=== PATIENT | female | born 1930 | race Caucasian/White ===

== ENCOUNTER 2016-10-29 11:12 | Outpatient (CLI) | payer OTHER ==
[~2016-10-29 11:12] MED LIST: ASPI81TA2 PO; ATOR40TA68 PO; CLOP75TA32 PO; FAMO20TA8 PO; ISOS30TA6 PO; LISI40TA4 PO; OMEP20CA10 PO; RANO500T2 PO
[2016-10-29] MEDS ORDERED: BARIUM SULFATE 135 ML SUSP.RECON (E-Z-HD) PO ONE (11:35)
== END 2016-10-29 19:37 | disposition home or self-care (01) ==
LOC: SRD 11:12
PROVIDERS: ATTEND Internal Medicine
DX: K21.9 Gastro-esophageal reflux disease without esophagitis (principal); K44.9 Diaphragmatic hernia without obstruction or gangrene; K22.4 Dyskinesia of esophagus
CPT/HCPCS: 74220-TC

== ENCOUNTER 2016-11-21 13:32 | Outpatient (CLI) | payer OTHER ==
[2016-11-21 15:00] LABS: BASOPHILS % (AUTO) 0.3 % (0.0-2.0); EOSINOPHILS # (AUTO) 0.1 K/uL (0.0-0.4); EOSINOPHILS % (AUTO) 1.4 % (0.0-4.0); HEMATOCRIT 37.9 % (36-48); HEMOGLOBIN 12.3 g/dL (12.0-16.0); LYMPHOCYTES # (AUTO) 1.2 K/uL (1.0-5.5); LYMPHOCYTES % (AUTO) 19.5 % (20.5-51.5); MEAN CORPUSCULAR HEMOGLOBIN 28 pg (27-31); MEAN CORPUSCULAR HGB CONC 33 % (32-36); MEAN CORPUSCULAR VOLUME 85 fL (79.0-98.0); MONOCYTES # (AUTO) 0.3 K/uL (0.0-1.0); MONOCYTES % (AUTO) 5.3 % (1.7-9.3); NEUTROPHILS # (AUTO) 4.6 K/uL (1.8-7.7); NEUTROPHILS % (AUTO) 73.5 % (40.0-70.0); PLATELET COUNT (AUTO) 207 K/uL (130-430); RED BLOOD CELL COUNT(AUTO) 4.46 MIL/uL (4.2-6.2); RED CELL DISTRIBUTION WIDTH 15.6 % (9.0-15.0); WHITE BLOOD COUNT (AUTO) 6.2 K/uL (4.8-10.8)
[2016-11-21 15:20] LABS: BILIRUBIN,URINE NEGATIVE (NEGATIVE); BLOOD, URINE NEGATIVE (NEGATIVE); CLARITY/URINE HAZY (CLEAR); COLOR,URINE YELLOW (YELLOW); GLUCOSE,URINE NEGATIVE (NEGATIVE); KETONES,URINE NEGATIVE (NEGATIVE); LEUKOCYTE ESTERASE ,URINE 2+ (NEGATIVE); NITRITE, URINE NEGATIVE (NEGATIVE); PROTEIN URINE NEGATIVE (NEGATIVE); UROBILINOGEN,URINE 0.2 (0.2-1.0)
[2016-11-21 15:28] LABS: ANION GAP 4 (5-15); CALCIUM 9.4 mg/dL (8.4-11.0); CHLORIDE 102 mmol/L (98-107); CREATININE 1.36 mg/dL (0.55-1.30); GLUCOSE 125 mg/dL (70-99); POTASSIUM 3.7 mmol/L (3.5-5.1); SODIUM SERUM 136 mmol/L (136-145); UREA NITROGEN, BLOOD 19 mg/dL (8-21)
[2016-11-21 16:07] LABS: BACTERIA,URINE FEW /HPF (None Seen); RBC,URINE 0-3 /HPF (0-3)
[2016-11-21 16:08] LABS: MUCUS,URINE None Seen /LPF (None Seen); URINE AMORPHOUS URATE 2+ /HPF (None Seen)
== END 2016-11-21 18:30 | disposition home or self-care (01) ==
LOC: SLB 13:32 → EDSTATUS 11-27 12:00
PROVIDERS: ATTEND Orthopaedic Surgery
DX: Z01.818 Encounter for other preprocedural examination (principal); R05 Cough; R06.02 Shortness of breath; K44.9 Diaphragmatic hernia without obstruction or gangrene; I51.7 Cardiomegaly; M47.899 Other spondylosis, site unspecified; M81.0 Age-related osteoporosis without current pathological fracture
CPT/HCPCS: 36415; 71020-TC; 80048; 81000-TC; 85025; 86886; 86900; 86901; 86920; 87081; 87086

== ENCOUNTER 2016-12-07 12:40 | Emergency (ER) | payer OTHER ==
[~2016-12-07] VITALS: Ht 165.1 cm; Wt 89.8 kg
[2016-12-07 12:40] VITALS: BP_SYST 117
--- NOTE | 2016-12-07 12:40 | NUR ---
Placed in room 7 . To gown for exam. bED lOW Side rails up. Report given to TREE LOPEZ
--- NOTE | 2016-12-07 12:50 | NUR ---
Pt states she has a cough for the past 10 days and was on a z pack 5 days ago, cough is not getting better. No noted SOB, answers questions appropriately. Pt states there is burning on urination and frequency. No other injuries/complaints per pt or noted
--- NOTE | 2016-12-07 13:14 | NUR ---
ER at bedside examining patient.
[2016-12-07 13:25] LABS: BILIRUBIN,URINE NEGATIVE (NEGATIVE); BLOOD, URINE NEGATIVE (NEGATIVE); CLARITY/URINE CLEAR (CLEAR); COLOR,URINE YELLOW (YELLOW); GLUCOSE,URINE NEGATIVE (NEGATIVE); KETONES,URINE NEGATIVE (NEGATIVE); LEUKOCYTE ESTERASE ,URINE NEGATIVE (NEGATIVE); NITRITE, URINE NEGATIVE (NEGATIVE); PH,URINE 6.5 (5.0-8.0); PROTEIN URINE NEGATIVE (NEGATIVE); UROBILINOGEN,URINE 0.2 (0.2-1.0)
[2016-12-07 13:33] LABS: BASOPHILS % (AUTO) 0.6 % (0.0-2.0); EOSINOPHILS # (AUTO) 0.1 K/uL (0.0-0.4); EOSINOPHILS % (AUTO) 1.5 % (0.0-4.0); HEMOGLOBIN 11.8 g/dL (12.0-16.0); LYMPHOCYTES # (AUTO) 1.1 K/uL (1.0-5.5); MEAN CORPUSCULAR HEMOGLOBIN 28 pg (27-31); MEAN CORPUSCULAR HGB CONC 33 % (32-36); MEAN CORPUSCULAR VOLUME 84 fL (79.0-98.0); MONOCYTES # (AUTO) 0.4 K/uL (0.0-1.0); MONOCYTES % (AUTO) 7.4 % (1.7-9.3); NEUTROPHILS # (AUTO) 3.7 K/uL (1.8-7.7); NEUTROPHILS % (AUTO) 69.5 % (40.0-70.0); PLATELET COUNT (AUTO) 199 K/uL (130-430); RED BLOOD CELL COUNT(AUTO) 4.26 MIL/uL (4.2-6.2); RED CELL DISTRIBUTION WIDTH 15.1 % (9.0-15.0); WHITE BLOOD COUNT (AUTO) 5.3 K/uL (4.8-10.8)
[2016-12-07 13:43] LABS: ANION GAP 6 (5-15); CALCIUM 8.4 mg/dL (8.4-11.0); CHLORIDE 101 mmol/L (98-107); CREATININE 1.62 mg/dL (0.55-1.30); GLUCOSE 138 mg/dL (70-99); POTASSIUM 4.1 mmol/L (3.5-5.1); SODIUM SERUM 133 mmol/L (136-145); UREA NITROGEN, BLOOD 22 mg/dL (8-21)
[2016-12-07 13:48] LABS: ALANINE AMINOTRANSFERASE 17 U/L (12-78); ALBUMIN 3.1 g/dL (3.4-4.8); ASPARTATE AMINOTRANSFERASE 16 U/L (10-37); TOTAL BILIRUBIN 0.5 mg/dL (0.0-1.0); TOTAL PROTEIN, SERUM 6.5 g/dL (6.4-8.3)
[2016-12-07] MEDS ORDERED: PROMETHAZINE 6.25 MG/ CODEINE 10 MG/ 5 ML PO ONE (14:00)
--- NOTE | 2016-12-07 14:12 | NUR ---
Pt is resting comfortably in bed with no nted SOB, has a cough and waiting for medication to help.
[2016-12-07 15:05] VITALS: BP_SYST 123
--- NOTE | 2016-12-07 15:05 | NUR ---
Patient given written and verbal discharge instructions and verbalizes understanding. ER MD discussed with patient the results and treatment provided. Patient in stable condition. ID arm band removed. Rx of promethazine given. Patient educated on pain management and to follow up with PMD. Pain Scale 0. Opportunity for questions provided and answered.
== END 2016-12-07 15:05 | disposition home or self-care (01) ==
LOC: SED 12:42
DX: J06.9 Acute upper respiratory infection, unspecified (principal); I10 Essential (primary) hypertension; I25.10 Atherosclerotic heart disease of native coronary artery without angina pectoris; Z88.6 Allergy status to analgesic agent; Z86.73 Personal history of transient ischemic attack (TIA), and cerebral infarction without residual deficits
CPT/HCPCS: 36415; 71010; 80053; 81003; 83605; 84484; 85025; 93005; 99285

== ENCOUNTER 2016-12-10 11:18 | Inpatient (IN) | payer OTHER ==
[~2016-12-10] VITALS: Ht 165.1 cm; Wt 89.8 kg
[2016-12-10 19:15] VITALS: BP_SYST 153
[2016-12-10 19:50] VITALS: BP_SYST 144
[2016-12-10] MEDS ORDERED: CLOP75TA2 PO (20:04)
[2016-12-10] MEDS ORDERED: HYDR25TA4 PO (20:06)
[2016-12-10] MEDS ORDERED: MULT-1164 PO (20:06)
[2016-12-10] MEDS ORDERED: CYAN100070 PO (20:06)
[2016-12-10] MEDS ORDERED: IPRATROPIUM/ALBUTEROL SULFATE 3 ML AMPUL.NEB INH PRN (20:15)
[2016-12-10] MEDS ORDERED: DEXTROSE 50% JECT 50 ML DISP.SYRIN IVP PRN ×2 (20:30)
[2016-12-10] MEDS ORDERED: LEVOFLOXACIN 500 MG/D5W 100 ML IV SCH (20:45)
[2016-12-10 21:20] LABS: BASOPHILS % (AUTO) 0.2 % (0.0-2.0); EOSINOPHILS # (AUTO) 0.1 K/uL (0.0-0.4); EOSINOPHILS % (AUTO) 1.2 % (0.0-4.0); HEMOGLOBIN 11.6 g/dL (12.0-16.0); LYMPHOCYTES # (AUTO) 1.3 K/uL (1.0-5.5); LYMPHOCYTES % (AUTO) 25.9 % (20.5-51.5); MEAN CORPUSCULAR HEMOGLOBIN 28 pg (27-31); MEAN CORPUSCULAR HGB CONC 33 % (32-36); MEAN CORPUSCULAR VOLUME 84 fL (79.0-98.0); MONOCYTES # (AUTO) 0.3 K/uL (0.0-1.0); MONOCYTES % (AUTO) 6.6 % (1.7-9.3); NEUTROPHILS # (AUTO) 3.1 K/uL (1.8-7.7); NEUTROPHILS % (AUTO) 66.1 % (40.0-70.0); PLATELET COUNT (AUTO) 233 K/uL (130-430); RED BLOOD CELL COUNT(AUTO) 4.18 MIL/uL (4.2-6.2); RED CELL DISTRIBUTION WIDTH 15.1 % (9.0-15.0); WHITE BLOOD COUNT (AUTO) 4.8 K/uL (4.8-10.8)
[2016-12-10 21:22] LABS: ANION GAP 5 (5-15); CHLORIDE 96 mmol/L (98-107); CREATININE 1.21 mg/dL (0.55-1.30); GLUCOSE 104 mg/dL (70-99); POTASSIUM 4.1 mmol/L (3.5-5.1); SODIUM SERUM 131 mmol/L (136-145); UREA NITROGEN, BLOOD 13 mg/dL (8-21)
[2016-12-10 21:26] VITALS: BP_SYST 153
[2016-12-10 21:34] LABS: ALANINE AMINOTRANSFERASE 17 U/L (12-78); ALBUMIN 3.2 g/dL (3.4-4.8); ASPARTATE AMINOTRANSFERASE 18 U/L (10-37); TOTAL BILIRUBIN 0.4 mg/dL (0.0-1.0); TOTAL PROTEIN, SERUM 6.4 g/dL (6.4-8.3)
[2016-12-10] MEDS ORDERED: LEVOFLOXACIN 500 MG/D5W 100 ML IV ONE (21:34)
[2016-12-10] MEDS ORDERED: RANOLAZINE 500 MG TAB.SR.12H PO ONE (22:00)
[2016-12-10] MEDS: ATORVASTATIN 20 MG TABLET PO SCH (22:33)
[2016-12-10] MEDS: LR 1,000 ML IV SCH (22:40)
[2016-12-10] MEDS: methylPREDNISolone SOD SUCC 40 MG/ML VIAL IVP SCH (22:40)
[2016-12-10] MEDS ORDERED: ISOSORBIDE MONONITRATE 30 MG TAB.ER.24H PO ONE (22:45)
[2016-12-10] MEDS ORDERED: LISINOPRIL 20 MG TABLET PO ONE (23:00)
[2016-12-10] MEDS: ZOLPIDEM TARTRATE 5 MG TABLET PO PRN ×2 (23:13→23:14)
[2016-12-10] MEDS: PROMETHAZINE 6.25 MG/ CODEINE 10 MG/ 5 ML PO PRN (23:35)
[2016-12-11] VITALS (7 sets, daily range): BP systolic 120–163
[2016-12-11] MEDS: INSULIN REGULAR, HUMAN 100 UNITS/ML, 10 ML VIAL (novoLIN R) SUBCUT PRN ×3 (05:56→17:54)
[2016-12-11] MEDS: IPRATROPIUM/ALBUTEROL SULFATE 3 ML AMPUL.NEB INH SCH ×3 (06:00→20:27)
[2016-12-11] MEDS: methylPREDNISolone SOD SUCC 40 MG/ML VIAL IVP SCH ×2 (08:08→22:31)
[2016-12-11] MEDS ORDERED: LISINOPRIL 20 MG TABLET PO SCH (09:00)
[2016-12-11] MEDS ORDERED: ISOSORBIDE MONONITRATE 30 MG TAB.ER.24H PO SCH (09:00)
[2016-12-11] MEDS: RANOLAZINE 500 MG TAB.SR.12H PO SCH ×2 (09:08→20:27)
[2016-12-11] MEDS: ISOSORBIDE MONONITRATE 30 MG TAB.ER.24H PO SCH ×2 (09:08→20:28)
[2016-12-11] MEDS: ASPIRIN 81 MG TAB.CHEW PO SCH (09:09)
[2016-12-11] MEDS: MULTIVITS,CA,MINERALS/IRON/FA 1 TABLET PO SCH (09:09)
[2016-12-11] MEDS: CYANOCOBALAMIN 1000 mCg TABLET PO SCH (09:09)
[2016-12-11] MEDS: OMEPRAZOLE 20 MG CAPSULE.DR (PriLOSEC) PO SCH ×2 (09:09→20:27)
[2016-12-11] MEDS: CLOPIDOGREL BISULFATE 75 MG TABLET PO SCH (09:09)
[2016-12-11] MEDS: HYDROCHLOROTHIAZIDE 25 MG TABLET (HCTZ) PO SCH (09:09)
[2016-12-11] MEDS: LR 1,000 ML IV SCH (10:48)
[2016-12-11] MEDS: PROMETHAZINE 6.25 MG/ CODEINE 10 MG/ 5 ML PO PRN ×2 (13:29→20:26)
[2016-12-11] MEDS: METOCLOPRAMIDE HCL 10 MG TABLET PO SCH ×2 (17:52→20:27)
[2016-12-11] MEDS ORDERED: ACETAMINOPHEN 650 MG/20.3 ML UDC GT PRN (20:15)
[2016-12-11] MEDS: ATORVASTATIN 20 MG TABLET PO SCH (20:27)
[2016-12-11] MEDS: LISINOPRIL 20 MG TABLET PO SCH (20:28)
[2016-12-11] MEDS ORDERED: ACETAMINOPHEN 650 MG/20.3 ML UDC PO PRN (20:30)
[2016-12-11] MEDS: LEVOFLOXACIN 250 MG/D5W 50 ML IV SCH (22:31)
[2016-12-11] MEDS: ZOLPIDEM TARTRATE 5 MG TABLET PO PRN (23:04)
[2016-12-12] MEDS: IPRATROPIUM/ALBUTEROL SULFATE 3 ML AMPUL.NEB INH SCH ×4 (01:04→19:56)
[2016-12-12 04:15] VITALS: BP_SYST 135
[2016-12-12] MEDS: INSULIN REGULAR, HUMAN 100 UNITS/ML, 10 ML VIAL (novoLIN R) SUBCUT PRN ×4 (05:58→22:35)
[2016-12-12] MEDS: METOCLOPRAMIDE HCL 10 MG TABLET PO SCH ×4 (05:58→22:24)
[2016-12-12 07:50] LABS: BILIRUBIN,URINE NEGATIVE (NEGATIVE); BLOOD, URINE NEGATIVE (NEGATIVE); CLARITY/URINE CLEAR (CLEAR); COLOR,URINE YELLOW (YELLOW); GLUCOSE,URINE NEGATIVE (NEGATIVE); KETONES,URINE NEGATIVE (NEGATIVE); LEUKOCYTE ESTERASE ,URINE NEGATIVE (NEGATIVE); NITRITE, URINE NEGATIVE (NEGATIVE); PROTEIN URINE NEGATIVE (NEGATIVE); UROBILINOGEN,URINE 0.2 (0.2-1.0)
[2016-12-12 08:59] VITALS: BP_SYST 131
[2016-12-12] MEDS: CYANOCOBALAMIN 1000 mCg TABLET PO SCH (09:03)
[2016-12-12] MEDS: CLOPIDOGREL BISULFATE 75 MG TABLET PO SCH (09:03)
[2016-12-12] MEDS: RANOLAZINE 500 MG TAB.SR.12H PO SCH ×2 (09:03→22:24)
[2016-12-12] MEDS: MULTIVITS,CA,MINERALS/IRON/FA 1 TABLET PO SCH (09:03)
[2016-12-12] MEDS: ISOSORBIDE MONONITRATE 30 MG TAB.ER.24H PO SCH ×2 (09:03→22:23)
[2016-12-12] MEDS: OMEPRAZOLE 20 MG CAPSULE.DR (PriLOSEC) PO SCH ×2 (09:03→22:25)
[2016-12-12] MEDS: ASPIRIN 81 MG TAB.CHEW PO SCH (09:03)
[2016-12-12] MEDS: HYDROCHLOROTHIAZIDE 25 MG TABLET (HCTZ) PO SCH (09:04)
[2016-12-12] MEDS: methylPREDNISolone SOD SUCC 40 MG/ML VIAL IVP SCH ×2 (09:04→22:23)
[2016-12-12] MEDS: PROMETHAZINE 6.25 MG/ CODEINE 10 MG/ 5 ML PO PRN ×2 (11:22→22:51)
[2016-12-12 11:27] VITALS: BP_SYST 167
[2016-12-12 11:55] LABS: ANION GAP 6 (5-15); CALCIUM 9.5 mg/dL (8.4-11.0); CHLORIDE 99 mmol/L (98-107); CREATININE 1.45 mg/dL (0.55-1.30); GLUCOSE 149 mg/dL (70-99); POTASSIUM 4.2 mmol/L (3.5-5.1); SODIUM SERUM 133 mmol/L (136-145); UREA NITROGEN, BLOOD 23 mg/dL (8-21)
[2016-12-12 11:56] LABS: IRON (SERUM) 55 mcg/dL (37-145); TOTAL IRON BIND. CAPACITY 333 ug/dL (250-450)
[2016-12-12 12:28] VITALS: BP_SYST 167
[2016-12-12 16:00] VITALS: BP_SYST 168
[2016-12-12 20:00] VITALS: BP_SYST 157
[2016-12-12] MEDS ORDERED: LISINOPRIL 20 MG TABLET PO SCH (21:00)
[2016-12-12] MEDS: LEVOFLOXACIN 250 MG/D5W 50 ML IV SCH (22:23)
[2016-12-12] MEDS: ATORVASTATIN 20 MG TABLET PO SCH (22:24)
[2016-12-12] MEDS: LISINOPRIL 20 MG TABLET PO SCH (22:25)
[2016-12-12] MEDS: ZOLPIDEM TARTRATE 5 MG TABLET PO PRN (22:51)
[2016-12-13] VITALS (8 sets, daily range): BP systolic 143–175
[2016-12-13] MEDS: IPRATROPIUM/ALBUTEROL SULFATE 3 ML AMPUL.NEB INH SCH ×4 (01:00→20:19)
[2016-12-13] MEDS: METOCLOPRAMIDE HCL 10 MG TABLET PO SCH ×3 (06:22→17:19)
[2016-12-13] MEDS: MULTIVITS,CA,MINERALS/IRON/FA 1 TABLET PO SCH (08:50)
[2016-12-13] MEDS: OMEPRAZOLE 20 MG CAPSULE.DR (PriLOSEC) PO SCH (08:50)
[2016-12-13] MEDS: methylPREDNISolone SOD SUCC 40 MG/ML VIAL IVP SCH (08:50)
[2016-12-13] MEDS: RANOLAZINE 500 MG TAB.SR.12H PO SCH (08:50)
[2016-12-13] MEDS: CYANOCOBALAMIN 1000 mCg TABLET PO SCH (08:50)
[2016-12-13] MEDS: CLOPIDOGREL BISULFATE 75 MG TABLET PO SCH (08:50)
[2016-12-13] MEDS: HYDROCHLOROTHIAZIDE 25 MG TABLET (HCTZ) PO SCH (08:51)
[2016-12-13] MEDS: ASPIRIN 81 MG TAB.CHEW PO SCH (08:51)
[2016-12-13] MEDS: ISOSORBIDE MONONITRATE 30 MG TAB.ER.24H PO SCH (08:51)
[2016-12-13] MEDS: PROMETHAZINE 6.25 MG/ CODEINE 10 MG/ 5 ML PO PRN (11:27)
[2016-12-13] MEDS ORDERED: cloNIDine HCL 0.1 MG TABLET PO PRN (11:45)
[2016-12-13] MEDS: INSULIN REGULAR, HUMAN 100 UNITS/ML, 10 ML VIAL (novoLIN R) SUBCUT PRN (17:24)
== END 2016-12-13 21:30 | disposition home or self-care (01) | DRG 189 ==
LOC: SMU 18:20
PROVIDERS: ADMIT Internal Medicine; ATTEND Internal Medicine
DX: J96.00 Acute respiratory failure, unspecified whether with hypoxia or hypercapnia (principal); J44.0 Chronic obstructive pulmonary disease with (acute) lower respiratory infection; E87.1 Hypo-osmolality and hyponatremia; E44.1 Mild protein-calorie malnutrition; J44.1 Chronic obstructive pulmonary disease with (acute) exacerbation; J20.9 Acute bronchitis, unspecified; I10 Essential (primary) hypertension; I25.10 Atherosclerotic heart disease of native coronary artery without angina pectoris; E11.9 Type 2 diabetes mellitus without complications; E78.5 Hyperlipidemia, unspecified; M17.0 Bilateral primary osteoarthritis of knee; D64.9 Anemia, unspecified; E66.9 Obesity, unspecified; G47.00 Insomnia, unspecified; G89.29 Other chronic pain; M40.209 Unspecified kyphosis, site unspecified; K21.9 Gastro-esophageal reflux disease without esophagitis; K44.9 Diaphragmatic hernia without obstruction or gangrene; Z86.73 Personal history of transient ischemic attack (TIA), and cerebral infarction without residual deficits; Z95.5 Presence of coronary angioplasty implant and graft; Z90.710 Acquired absence of both cervix and uterus; Z68.32 Body mass index [BMI] 32.0-32.9, adult; Z90.49 Acquired absence of other specified parts of digestive tract; Z88.6 Allergy status to analgesic agent
CPT/HCPCS: 36415; 71250-TC; 80048; 80053; 81003; 82962; 83540-TC; 83550-TC; 83880; 84484; 85025; 87086; 93005; 93306; 94640; 94760; 97110-GP; 97116-GP; 97530-GP; J1030; J1815; J1956; J7120; J8597

== ENCOUNTER 2017-01-08 14:08 | Inpatient (IN) | payer OTHER ==
[~2017-01-08] VITALS: Ht 165.1 cm; Wt 88.9 kg
[~2017-01-08 14:08] MED LIST changes: +CLOP75TA2 PO; -CLOP75TA32 PO; +CYAN100070 PO; -FAMO20TA8 PO; +HYDR25TA4 PO; +MULT-1164 PO
[2017-01-08 15:53] VITALS: BP_SYST 117
[2017-01-08] MEDS ORDERED: LISI-600 PO (16:43)
[2017-01-08] MEDS ORDERED: CIPR-211 PO (16:43)
[2017-01-08] MEDS ORDERED: METR500T PO (16:43)
[2017-01-08] MEDS ORDERED: ALBU2.5V7 INH (16:43)
[2017-01-08] MEDS ORDERED: LIP40 PO (16:44)
[2017-01-08] MEDS ORDERED: MONT10TA25 PO (16:53)
[2017-01-08 17:18] LABS: BASOPHILS % (AUTO) 0.2 % (0.0-2.0); EOSINOPHILS # (AUTO) 0.1 K/uL (0.0-0.4); EOSINOPHILS % (AUTO) 0.9 % (0.0-4.0); HEMATOCRIT 33.3 % (36-48); HEMOGLOBIN 10.8 g/dL (12.0-16.0); LYMPHOCYTES # (AUTO) 0.8 K/uL (1.0-5.5); LYMPHOCYTES % (AUTO) 13.3 % (20.5-51.5); MEAN CORPUSCULAR HEMOGLOBIN 28 pg (27-31); MEAN CORPUSCULAR HGB CONC 33 % (32-36); MEAN CORPUSCULAR VOLUME 85 fL (79.0-98.0); MONOCYTES # (AUTO) 0.5 K/uL (0.0-1.0); NEUTROPHILS # (AUTO) 4.3 K/uL (1.8-7.7); NEUTROPHILS % (AUTO) 77.6 % (40.0-70.0); PLATELET COUNT (AUTO) 212 K/uL (130-430); RED BLOOD CELL COUNT(AUTO) 3.94 MIL/uL (4.2-6.2); RED CELL DISTRIBUTION WIDTH 16.6 % (9.0-15.0); WHITE BLOOD COUNT (AUTO) 5.7 K/uL (4.8-10.8)
[2017-01-08 17:26] LABS: ANION GAP 7 (5-15); CALCIUM 8.6 mg/dL (8.4-11.0); CHLORIDE 98 mmol/L (98-107); CREATININE 1.24 mg/dL (0.55-1.30); GLUCOSE 108 mg/dL (70-99); POTASSIUM 4.2 mmol/L (3.5-5.1); SODIUM SERUM 133 mmol/L (136-145); UREA NITROGEN, BLOOD 18 mg/dL (8-21)
[2017-01-08 17:31] LABS: ALANINE AMINOTRANSFERASE 15 U/L (12-78); ALBUMIN 2.9 g/dL (3.4-4.8); ASPARTATE AMINOTRANSFERASE 13 U/L (10-37); TOTAL BILIRUBIN 0.5 mg/dL (0.0-1.0); TOTAL PROTEIN, SERUM 6.1 g/dL (6.4-8.3)
[2017-01-08] MEDS ORDERED: INSULIN REGULAR, HUMAN 100 UNITS/ML, 10 ML VIAL (novoLIN R) SUBCUT PRN (18:45)
[2017-01-08] MEDS ORDERED: DEXTROSE 50% JECT 50 ML DISP.SYRIN IVP PRN (18:45)
[2017-01-08] MEDS ORDERED: ACETAMINOPHEN 325 MG TABLET PO PRN (19:15)
[2017-01-08] MEDS ORDERED: metroNIDAZOLE 500 mg/NS 100 ML IV ONE (19:30)
[2017-01-08 20:00] VITALS: BP_SYST 119
[2017-01-08] MEDS: ISOSORBIDE MONONITRATE 30 MG TAB.ER.24H PO SCH (20:07)
[2017-01-08] MEDS: MONTELUKAST 10 MG TABLET PO SCH (20:07)
[2017-01-08] MEDS: ZOLPIDEM TARTRATE 5 MG TABLET PO SCH (20:07)
[2017-01-08] MEDS: LACTOBACILLUS RHAMNOSUS GG 1 CAP CAPSULE PO SCH (20:07)
[2017-01-08] MEDS: ATORVASTATIN 20 MG TABLET PO SCH (20:08)
[2017-01-08] MEDS: RANOLAZINE 500 MG TAB.SR.12H PO SCH (20:08)
[2017-01-08] MEDS: traMADol HCL HCL 50 MG TABLET (ULTRAM) PO PRN (20:08)
[2017-01-08] MEDS: PANTOPRAZOLE SODIUM 40 MG TAB PO SCH (20:08)
[2017-01-08] MEDS: LISINOPRIL 20 MG TABLET PO SCH (20:10)
[2017-01-08] MEDS ORDERED: metroNIDAZOLE 500 mg/NS 200 ML IV ONE (20:15)
[2017-01-08] MEDS ORDERED: LEVOFLOXACIN 250 MG/D5W 50 ML IV ONE (20:15)
[2017-01-08 20:34] VITALS: BP_SYST 115
[2017-01-08] MEDS ORDERED: ONDANSETRON HCL 4 MG/2 ML VIAL IVP PRN (20:45)
[2017-01-08] MEDS ORDERED: CIPROFLOXACIN LACT 200 MG/D5W 100 ML IV SCH (21:00)
[2017-01-08] MEDS ORDERED: OMEPRAZOLE 20 MG CAPSULE.DR (PriLOSEC) PO SCH (21:00)
[2017-01-08] MEDS: LEVOFLOXACIN 250 MG/D5W 50 ML IV SCH (21:56)
[2017-01-08 23:19] VITALS: BP_SYST 117
[2017-01-09 04:01] VITALS: BP_SYST 136
[2017-01-09] MEDS ORDERED: ONDANSETRON HCL 4 MG/2 ML VIAL IVP PRN (04:30)
[2017-01-09 04:37] LABS: BILIRUBIN,URINE NEGATIVE (NEGATIVE); BLOOD, URINE NEGATIVE (NEGATIVE); CLARITY/URINE CLEAR (CLEAR); COLOR,URINE YELLOW (YELLOW); GLUCOSE,URINE NEGATIVE (NEGATIVE); KETONES,URINE NEGATIVE (NEGATIVE); LEUKOCYTE ESTERASE ,URINE NEGATIVE (NEGATIVE); NITRITE, URINE NEGATIVE (NEGATIVE); PROTEIN URINE NEGATIVE (NEGATIVE); UROBILINOGEN,URINE 0.2 (0.2-1.0)
[2017-01-09] MEDS: metroNIDAZOLE 500 mg/NS 100 ML IV SCH ×3 (05:13→22:34)
[2017-01-09 07:01] LABS: ANION GAP 4 (5-15); CALCIUM 8.6 mg/dL (8.4-11.0); CHLORIDE 96 mmol/L (98-107); CREATININE 1.19 mg/dL (0.55-1.30); GLUCOSE 96 mg/dL (70-99); POTASSIUM 3.9 mmol/L (3.5-5.1); SODIUM SERUM 132 mmol/L (136-145); UREA NITROGEN, BLOOD 17 mg/dL (8-21)
[2017-01-09 07:05] LABS: BASOPHILS % (AUTO) 0.3 % (0.0-2.0); EOSINOPHILS # (AUTO) 0.1 K/uL (0.0-0.4); EOSINOPHILS % (AUTO) 2.3 % (0.0-4.0); HEMATOCRIT 33.2 % (36-48); LYMPHOCYTES % (AUTO) 21.9 % (20.5-51.5); MEAN CORPUSCULAR HEMOGLOBIN 28 pg (27-31); MEAN CORPUSCULAR HGB CONC 33 % (32-36); MEAN CORPUSCULAR VOLUME 85 fL (79.0-98.0); MONOCYTES # (AUTO) 0.5 K/uL (0.0-1.0); MONOCYTES % (AUTO) 11.2 % (1.7-9.3); NEUTROPHILS # (AUTO) 3.1 K/uL (1.8-7.7); NEUTROPHILS % (AUTO) 64.3 % (40.0-70.0); PLATELET COUNT (AUTO) 192 K/uL (130-430); RED BLOOD CELL COUNT(AUTO) 3.89 MIL/uL (4.2-6.2); RED CELL DISTRIBUTION WIDTH 16.9 % (9.0-15.0); WHITE BLOOD COUNT (AUTO) 4.7 K/uL (4.8-10.8)
[2017-01-09 07:56] LABS: ERYTHROCYTE SEDIMENTATION RATE 27 MM/HR (0-20)
[2017-01-09 08:00] VITALS: BP_SYST 124
[2017-01-09 08:00] LABS: IRON (SERUM) 30 mcg/dL (37-145); TOTAL IRON BIND. CAPACITY 240 ug/dL (250-450)
[2017-01-09] MEDS: CLOPIDOGREL BISULFATE 75 MG TABLET PO SCH (08:50)
[2017-01-09] MEDS: LACTOBACILLUS RHAMNOSUS GG 1 CAP CAPSULE PO SCH ×2 (08:50→20:43)
[2017-01-09] MEDS: ASPIRIN 81 MG TAB.CHEW PO SCH (08:50)
[2017-01-09] MEDS: RANOLAZINE 500 MG TAB.SR.12H PO SCH ×2 (08:50→20:45)
[2017-01-09] MEDS: MULTIVITS,CA,MINERALS/IRON/FA 1 TABLET PO SCH (08:50)
[2017-01-09] MEDS: PANTOPRAZOLE SODIUM 40 MG TAB PO SCH ×2 (08:50→20:46)
[2017-01-09] MEDS: ISOSORBIDE MONONITRATE 30 MG TAB.ER.24H PO SCH ×2 (08:50→20:44)
[2017-01-09] MEDS: HYDROCHLOROTHIAZIDE 25 MG TABLET (HCTZ) PO SCH (08:51)
[2017-01-09] MEDS: traMADol HCL HCL 50 MG TABLET (ULTRAM) PO PRN (10:28)
[2017-01-09 11:44] VITALS: BP_SYST 118
[2017-01-09] MEDS: CYANOCOBALAMIN 1000 mCg TABLET PO SCH (11:49)
[2017-01-09 12:00] VITALS: BP_SYST 94
[2017-01-09] MEDS: ALBUTEROL SULFATE 0.083% 2.5 MG/3 ML VIAL.NEB INH PRN (14:33)
[2017-01-09 16:11] VITALS: BP_SYST 113
[2017-01-09] MEDS ORDERED: SOD FERRIC GLUC COMPLEX/SUC 125 MG in NS 100 ML IV SCH (18:45)
[2017-01-09] MEDS ORDERED: MINERAL OIL 30 ML UDC PO ONE (19:00)
[2017-01-09] MEDS: ATORVASTATIN 20 MG TABLET PO SCH (20:45)
[2017-01-09] MEDS: MONTELUKAST 10 MG TABLET PO SCH (20:46)
[2017-01-09] MEDS: LEVOFLOXACIN 250 MG/D5W 50 ML IV SCH (21:48)
[2017-01-09] MEDS: LISINOPRIL 20 MG TABLET PO SCH (21:49)
[2017-01-09] MEDS: ZOLPIDEM TARTRATE 5 MG TABLET PO SCH (22:32)
[2017-01-10 00:51] VITALS: BP_SYST 141
[2017-01-10 04:40] VITALS: BP_SYST 139
[2017-01-10] MEDS: metroNIDAZOLE 500 mg/NS 100 ML IV SCH ×3 (06:17→23:10)
[2017-01-10 08:01] VITALS: BP_SYST 142
[2017-01-10] MEDS: MULTIVITS,CA,MINERALS/IRON/FA 1 TABLET PO SCH (08:42)
[2017-01-10] MEDS: ASPIRIN 81 MG TAB.CHEW PO SCH (08:42)
[2017-01-10] MEDS: LACTOBACILLUS RHAMNOSUS GG 1 CAP CAPSULE PO SCH ×2 (08:42→21:37)
[2017-01-10] MEDS: HYDROCHLOROTHIAZIDE 25 MG TABLET (HCTZ) PO SCH (08:43)
[2017-01-10] MEDS: ISOSORBIDE MONONITRATE 30 MG TAB.ER.24H PO SCH ×2 (08:43→21:38)
[2017-01-10] MEDS: CLOPIDOGREL BISULFATE 75 MG TABLET PO SCH (08:43)
[2017-01-10] MEDS: PANTOPRAZOLE SODIUM 40 MG TAB PO SCH ×2 (08:44→21:36)
[2017-01-10] MEDS: RANOLAZINE 500 MG TAB.SR.12H PO SCH ×2 (08:44→21:37)
[2017-01-10] MEDS: CYANOCOBALAMIN 1000 mCg TABLET PO SCH (08:48)
[2017-01-10] MEDS: traMADol HCL HCL 50 MG TABLET (ULTRAM) PO PRN (10:27)
[2017-01-10] MEDS ORDERED: MILK OF MAGNESIA 30 ML UDC PO ONE ×2 (11:00→20:45)
[2017-01-10 12:00] VITALS: BP_SYST 113
[2017-01-10] MEDS: SOD FERRIC GLUC COMPLEX/SUC 125 MG in NS 100 ML IV SCH (13:40)
[2017-01-10 16:00] VITALS: BP_SYST 152
[2017-01-10] MEDS: LEVOFLOXACIN 250 MG/D5W 50 ML IV SCH (21:36)
[2017-01-10] MEDS: MONTELUKAST 10 MG TABLET PO SCH (21:36)
[2017-01-10] MEDS: ZOLPIDEM TARTRATE 5 MG TABLET PO SCH (21:37)
[2017-01-10] MEDS: ATORVASTATIN 20 MG TABLET PO SCH (21:37)
[2017-01-10] MEDS: LISINOPRIL 20 MG TABLET PO SCH (21:51)
[2017-01-11] VITALS (7 sets, daily range): BP systolic 108–137
[2017-01-11] MEDS: metroNIDAZOLE 500 mg/NS 100 ML IV SCH ×2 (05:50→15:27)
[2017-01-11] MEDS: HYDROCHLOROTHIAZIDE 25 MG TABLET (HCTZ) PO SCH (09:09)
[2017-01-11] MEDS: MULTIVITS,CA,MINERALS/IRON/FA 1 TABLET PO SCH (09:09)
[2017-01-11] MEDS: ISOSORBIDE MONONITRATE 30 MG TAB.ER.24H PO SCH ×2 (09:09→21:00)
[2017-01-11] MEDS: RANOLAZINE 500 MG TAB.SR.12H PO SCH ×2 (09:09→21:00)
[2017-01-11] MEDS: CYANOCOBALAMIN 1000 mCg TABLET PO SCH (09:09)
[2017-01-11] MEDS: PANTOPRAZOLE SODIUM 40 MG TAB PO SCH ×2 (09:09→20:58)
[2017-01-11] MEDS: ASPIRIN 81 MG TAB.CHEW PO SCH (09:10)
[2017-01-11] MEDS: LACTOBACILLUS RHAMNOSUS GG 1 CAP CAPSULE PO SCH ×2 (09:10→20:59)
[2017-01-11] MEDS: CLOPIDOGREL BISULFATE 75 MG TABLET PO SCH (09:10)
[2017-01-11] MEDS ORDERED: BISACODYL 10 MG/SUPPOSITORY RC ONE (09:45)
[2017-01-11] MEDS ORDERED: MILK OF MAGNESIA 30 ML UDC PO PRN (09:45)
[2017-01-11] MEDS ORDERED: MINERAL OIL 30 ML UDC PO ONE ×2 (09:45)
[2017-01-11] MEDS ORDERED: MILK OF MAGNESIA 30 ML UDC PO ONE (09:45)
[2017-01-11] MEDS: DOCUSATE SODIUM 250 MG CAPSULE PO SCH ×2 (10:22→20:59)
[2017-01-11] MEDS: traMADol HCL HCL 50 MG TABLET (ULTRAM) PO PRN (10:22)
[2017-01-11] MEDS: ALBUTEROL SULFATE 0.083% 2.5 MG/3 ML VIAL.NEB INH PRN ×2 (11:27→20:19)
[2017-01-11] MEDS: SOD FERRIC GLUC COMPLEX/SUC 125 MG in NS 100 ML IV SCH (12:00)
[2017-01-11] MEDS: LEVOFLOXACIN 250 MG/D5W 50 ML IV SCH (18:45)
[2017-01-11] MEDS ORDERED: FLA250 PO (20:39)
[2017-01-11] MEDS ORDERED: LEVO250T20 PO (20:41)
[2017-01-11] MEDS ORDERED: LACTIN PO (20:45)
[2017-01-11] MEDS: MONTELUKAST 10 MG TABLET PO SCH (20:59)
[2017-01-11] MEDS: LISINOPRIL 20 MG TABLET PO SCH (20:59)
[2017-01-11] MEDS: ATORVASTATIN 20 MG TABLET PO SCH (21:00)
[2017-01-11] MEDS: ZOLPIDEM TARTRATE 5 MG TABLET PO SCH (21:00)
== END 2017-01-11 21:30 | disposition home or self-care (01) | DRG 392 ==
LOC: SMU 15:36
PROVIDERS: ADMIT Internal Medicine; ATTEND Internal Medicine
DX: K57.92 Diverticulitis of intestine, part unspecified, without perforation or abscess without bleeding (principal); E44.1 Mild protein-calorie malnutrition; J44.9 Chronic obstructive pulmonary disease, unspecified; I25.10 Atherosclerotic heart disease of native coronary artery without angina pectoris; E78.5 Hyperlipidemia, unspecified; M19.90 Unspecified osteoarthritis, unspecified site; K44.9 Diaphragmatic hernia without obstruction or gangrene; E11.21 Type 2 diabetes mellitus with diabetic nephropathy; I12.9 Hypertensive chronic kidney disease with stage 1 through stage 4 chronic kidney disease, or unspecified chronic kidney disease; E11.22 Type 2 diabetes mellitus with diabetic chronic kidney disease; N18.9 Chronic kidney disease, unspecified; K57.90 Diverticulosis of intestine, part unspecified, without perforation or abscess without bleeding; D63.8 Anemia in other chronic diseases classified elsewhere; D50.9 Iron deficiency anemia, unspecified; K21.9 Gastro-esophageal reflux disease without esophagitis; Z79.82 Long term (current) use of aspirin; Z79.899 Other long term (current) drug therapy; Z88.6 Allergy status to analgesic agent; Z68.32 Body mass index [BMI] 32.0-32.9, adult
CPT/HCPCS: 36415; 74000-TC; 80048; 80053; 81003; 82962; 83036; 83540-TC; 83550-TC; 85025; 85651-TC; 87081; 94640; 97110-GP; 97116-GP; 97530-GP; J1815; J1956; J2405; J2916; J3490; J7050

== ENCOUNTER 2017-02-12 16:31 | Outpatient (CLI) | payer OTHER ==
[~2017-02-12 16:31] MED LIST changes: +ALBU2.5V7 INH; -ATOR40TA68 PO; +FLA250 PO; -HYDR25TA4 PO; +LACTIN PO; +LEVO250T20 PO; +LIP40 PO; +LISI-600 PO; -LISI40TA4 PO; +MONT10TA25 PO
[2017-02-12 16:59] LABS: EOSINOPHILS # (AUTO) 0.1 K/uL (0.0-0.4)
[2017-02-12 17:11] LABS: LYMPHOCYTES # (AUTO) 1.2 K/uL (1.0-5.5); MEAN CORPUSCULAR HGB CONC 34 % (32-36); MEAN CORPUSCULAR VOLUME 84 fL (79.0-98.0); MONOCYTES # (AUTO) 0.4 K/uL (0.0-1.0); RED CELL DISTRIBUTION WIDTH 16.3 % (9.0-15.0)
[2017-02-12 17:16] LABS: ANION GAP 6 (5-15); CHLORIDE 106 mmol/L (98-107); CREATININE 1.48 mg/dL (0.55-1.30); GLUCOSE 106 mg/dL (70-99); POTASSIUM 4.3 mmol/L (3.5-5.1); SODIUM SERUM 140 mmol/L (136-145); UREA NITROGEN, BLOOD 27 mg/dL (8-21)
[2017-02-12 17:19] LABS: BASOPHILS % (AUTO) 0.6 % (0.0-2.0); EOSINOPHILS % (AUTO) 1.9 % (0.0-4.0); HEMATOCRIT 35.4 % (36-48); LYMPHOCYTES % (AUTO) 22.4 % (20.5-51.5); MEAN CORPUSCULAR HEMOGLOBIN 29 pg (27-31); MONOCYTES % (AUTO) 7.1 % (1.7-9.3); NEUTROPHILS # (AUTO) 3.8 K/uL (1.8-7.7); PLATELET COUNT (AUTO) 183 K/uL (130-430); RED BLOOD CELL COUNT(AUTO) 4.21 MIL/uL (4.2-6.2); WHITE BLOOD COUNT (AUTO) 5.5 K/uL (4.8-10.8)
[2017-02-12 17:31] LABS: BLOOD, URINE NEGATIVE (NEGATIVE); CLARITY/URINE CLEAR (CLEAR); COLOR,URINE AMBER (YELLOW); GLUCOSE,URINE NEGATIVE (NEGATIVE); KETONES,URINE TRACE (NEGATIVE); LEUKOCYTE ESTERASE ,URINE 1+ (NEGATIVE); NITRITE, URINE NEGATIVE (NEGATIVE); PH,URINE 5.5 (5.0-8.0); PROTEIN URINE TRACE (NEGATIVE); UROBILINOGEN,URINE 0.2 (0.2-1.0)
[2017-02-12 18:12] LABS: BILIRUBIN,URINE NEGATIVE (NEGATIVE)
[2017-02-12 18:28] LABS: BACTERIA,URINE FEW /HPF (None Seen); MUCUS,URINE None Seen /LPF (None Seen); RBC,URINE NONE SEEN /HPF (0-3); WBC,URINE 20-50 /HPF (0-3)
== END 2017-02-12 19:37 | disposition home or self-care (01) ==
LOC: SLB 16:31
PROVIDERS: ATTEND Internal Medicine
DX: I11.0 Hypertensive heart disease with heart failure (principal); I50.9 Heart failure, unspecified; N39.0 Urinary tract infection, site not specified; I25.10 Atherosclerotic heart disease of native coronary artery without angina pectoris
CPT/HCPCS: 36415; 80048; 81000-TC; 83735-TC; 83880; 85025; 87086

== ENCOUNTER 2017-03-20 20:48 | Inpatient (IN) | payer OTHER ==
[~2017-03-20] VITALS: Ht 167.6 cm; Wt 89.8 kg
[2017-03-20 21:03] VITALS: BP_SYST 129
[2017-03-20] MEDS ORDERED: NACL 0.9% 1,000 ML IV SCH (21:51)
[2017-03-20 22:16] LABS: BILIRUBIN,URINE NEGATIVE (NEGATIVE); BLOOD, URINE NEGATIVE (NEGATIVE); CLARITY/URINE SL HAZY (CLEAR); COLOR,URINE YELLOW (YELLOW); GLUCOSE,URINE NEGATIVE (NEGATIVE); KETONES,URINE NEGATIVE (NEGATIVE); LEUKOCYTE ESTERASE ,URINE 1+ (NEGATIVE); NITRITE, URINE NEGATIVE (NEGATIVE); PH,URINE 6.5 (5.0-8.0); PROTEIN URINE NEGATIVE (NEGATIVE); UROBILINOGEN,URINE 0.2 (0.2-1.0)
[2017-03-20 22:23] LABS: BASOPHILS % (AUTO) 0.2 % (0.0-2.0); EOSINOPHILS % (AUTO) 0.3 % (0.0-4.0); HEMATOCRIT 36.7 % (36-48); HEMOGLOBIN 12.3 g/dL (12.0-16.0); LYMPHOCYTES # (AUTO) 0.6 K/uL (1.0-5.5); LYMPHOCYTES % (AUTO) 10.9 % (20.5-51.5); MEAN CORPUSCULAR HEMOGLOBIN 28 pg (27-31); MEAN CORPUSCULAR HGB CONC 34 % (32-36); MEAN CORPUSCULAR VOLUME 83 fL (79.0-98.0); MONOCYTES # (AUTO) 0.5 K/uL (0.0-1.0); MONOCYTES % (AUTO) 8.5 % (1.7-9.3); NEUTROPHILS # (AUTO) 4.7 K/uL (1.8-7.7); NEUTROPHILS % (AUTO) 80.1 % (40.0-70.0); PLATELET COUNT (AUTO) 159 K/uL (130-430); RED BLOOD CELL COUNT(AUTO) 4.45 MIL/uL (4.2-6.2); RED CELL DISTRIBUTION WIDTH 15.4 % (9.0-15.0); WHITE BLOOD COUNT (AUTO) 5.8 K/uL (4.8-10.8)
[2017-03-20 22:35] LABS: ANION GAP 10 (5-15); CALCIUM 9.6 mg/dL (8.4-11.0); CHLORIDE 99 mmol/L (98-107); CREATININE 1.46 mg/dL (0.55-1.30); GLUCOSE 143 mg/dL (70-99); POTASSIUM 4.4 mmol/L (3.5-5.1); SODIUM SERUM 137 mmol/L (136-145); UREA NITROGEN, BLOOD 18 mg/dL (8-21)
[2017-03-20 22:40] LABS: BARBITURATE, URINE NEGATIVE (NEG <=200); BENZODIAZEPINE, URINE NEGATIVE (NEG <=150); COCAINE, URINE NEGATIVE (NEG <=150); METHAMPHETAMINES SCREEN,URINE NEGATIVE (NEG <=500); URINE AMPHETAMINE NEGATIVE (NEG <=500); URINE METHADONE NEGATIVE (NEG <=200)
[2017-03-20] MEDS ORDERED: POTA20TA83 PO (22:40)
[2017-03-20] MEDS ORDERED: VITRON C PO (22:40)
[2017-03-20] MEDS ORDERED: DOCU-144 PO (22:40)
[2017-03-20] MEDS ORDERED: FURO-150 PO (22:40)
[2017-03-20 22:41] LABS: ACETAMINOPHEN 8 ug/mL (1-30); ALANINE AMINOTRANSFERASE 30 U/L (12-78); ALBUMIN 3.5 g/dL (3.4-4.8); ASPARTATE AMINOTRANSFERASE 30 U/L (10-37); CANNABINOID, URINE NEGATIVE (NEG <=50); OPIATE, URINE NEGATIVE (NEG <=100); PHENCYCLIDINE SCREEN,URINE NEGATIVE (NEG <=25); TOTAL BILIRUBIN 0.6 mg/dL (0.0-1.0); UR TRICYCLIC ANTIDEPRESSANTS NEGATIVE (NEG <=300); URINE OXYCODONE SCREEN NEGATIVE (NEG <=100); URINE PROPOXYPHENE SCREEN NEGATIVE (NEG <=300)
[2017-03-20 22:49] LABS: INR 1.1 (0.8-1.2); PROTHROMBIN TIME 12.2 SECS (9.5-12.5)
[2017-03-20] MEDS ORDERED: ACETAMINOPHEN 325 MG TABLET PO PRN (23:00)
[2017-03-20 23:07] LABS: BACTERIA,URINE FEW /HPF (None Seen); MUCUS,URINE None Seen /LPF (None Seen); RBC,URINE NONE SEEN /HPF (0-3)
[2017-03-20 23:30] VITALS: BP_SYST 154
[2017-03-21] MEDS ORDERED: ALBUTEROL SULFATE 0.083% 2.5 MG/3 ML VIAL.NEB INH ONE (00:10)
[2017-03-21] MEDS ORDERED: LISINOPRIL 20 MG TABLET PO ONE (00:15)
[2017-03-21] MEDS ORDERED: ISOSORBIDE MONONITRATE 30 MG TAB.ER.24H PO ONE (00:15)
[2017-03-21] MEDS ORDERED: FLU VACC QS 2017-18(36MOS+)/PF 0.5 ML/SYR SYRINGE I.M. PRN (00:15)
[2017-03-21] MEDS ORDERED: RANOLAZINE 500 MG TAB.SR.12H PO ONE (00:15)
[2017-03-21] MEDS ORDERED: ATORVASTATIN 20 MG TABLET PO ONE (00:15)
[2017-03-21] MEDS ORDERED: cefTRIAXone 1 GM IVPB PREMIX 50 ML IV ONE (00:19)
[2017-03-21] MEDS: cefTRIAXone 1 GM in D5W 50 ML IV SCH ×2 (00:25→23:33)
[2017-03-21 00:47] VITALS: BP_SYST 136
[2017-03-21 01:51] LABS: ALCOHOL, BLOOD < 3 mg/dL (<10)
[2017-03-21 03:41] VITALS: BP_SYST 123
[2017-03-21] MEDS ORDERED: INSULIN REGULAR, HUMAN 100 UNITS/ML, 10 ML VIAL (novoLIN R) SUBCUT PRN ×2 (06:30→11:45)
[2017-03-21 08:24] VITALS: BP_SYST 175
[2017-03-21] MEDS ORDERED: VITRON C PO SCH (09:00)
[2017-03-21] MEDS: POTASSIUM CHLORIDE 20 MEQ TAB.PRT.SR PO SCH (09:29)
[2017-03-21] MEDS: OMEPRAZOLE 20 MG CAPSULE.DR (PriLOSEC) PO SCH ×2 (09:29→21:39)
[2017-03-21] MEDS: RANOLAZINE 500 MG TAB.SR.12H PO SCH ×2 (09:29→21:40)
[2017-03-21] MEDS: FUROSEMIDE 20 MG TABLET PO SCH (09:30)
[2017-03-21] MEDS: CLOPIDOGREL BISULFATE 75 MG TABLET PO SCH (09:30)
[2017-03-21] MEDS: MULTIVITS,CA,MINERALS/IRON/FA 1 TABLET PO SCH (09:30)
[2017-03-21] MEDS: ASPIRIN 81 MG TAB.CHEW PO SCH (09:30)
[2017-03-21] MEDS: ISOSORBIDE MONONITRATE 30 MG TAB.ER.24H PO SCH ×2 (09:31→21:37)
[2017-03-21] MEDS: DOCUSATE SODIUM 100 MG CAPSULE PO SCH ×2 (09:31→21:36)
[2017-03-21] MEDS ORDERED: LEVOFLOXACIN 250 MG/D5W 50 ML IV SCH (10:45)
[2017-03-21] MEDS: LACTOBACILLUS RHAMNOSUS GG 1 CAP CAPSULE PO SCH ×2 (10:45→21:36)
[2017-03-21] MEDS ORDERED: DEXTROSE 50% JECT 50 ML DISP.SYRIN IVP PRN (11:45)
[2017-03-21 12:51] VITALS: BP_SYST 141
[2017-03-21] MEDS ORDERED: LACTOBACILLUS RHAMNOSUS GG 1 CAP CAPSULE PO ONE (14:00)
[2017-03-21 16:32] VITALS: BP_SYST 136
[2017-03-21 20:00] VITALS: BP_SYST 168
[2017-03-21] MEDS: LISINOPRIL 20 MG TABLET PO SCH (21:39)
[2017-03-21] MEDS: MONTELUKAST 10 MG TABLET PO SCH (21:39)
[2017-03-21] MEDS: ALBUTEROL SULFATE 0.083% 2.5 MG/3 ML VIAL.NEB INH PRN (21:40)
[2017-03-21] MEDS: ATORVASTATIN 20 MG TABLET PO SCH (21:40)
[2017-03-22] VITALS: BP_SYST 145; BP_SYST 149
[2017-03-22] MEDS: ZOLPIDEM TARTRATE 5 MG TABLET PO PRN ×2 (00:29→21:51)
[2017-03-22 05:00] VITALS: BP_SYST 130
[2017-03-22 06:35] LABS: BASOPHILS % (AUTO) 0.3 % (0.0-2.0); EOSINOPHILS # (AUTO) 0.1 K/uL (0.0-0.4); EOSINOPHILS % (AUTO) 1.8 % (0.0-4.0); HEMATOCRIT 35.7 % (36-48); HEMOGLOBIN 11.6 g/dL (12.0-16.0); LYMPHOCYTES # (AUTO) 1.1 K/uL (1.0-5.5); LYMPHOCYTES % (AUTO) 21.9 % (20.5-51.5); MEAN CORPUSCULAR HEMOGLOBIN 28 pg (27-31); MEAN CORPUSCULAR HGB CONC 33 % (32-36); MEAN CORPUSCULAR VOLUME 85 fL (79.0-98.0); MONOCYTES # (AUTO) 0.8 K/uL (0.0-1.0); MONOCYTES % (AUTO) 15.9 % (1.7-9.3); NEUTROPHILS # (AUTO) 2.9 K/uL (1.8-7.7); NEUTROPHILS % (AUTO) 60.1 % (40.0-70.0); PLATELET COUNT (AUTO) 134 K/uL (130-430); RED BLOOD CELL COUNT(AUTO) 4.19 MIL/uL (4.2-6.2); RED CELL DISTRIBUTION WIDTH 15.5 % (9.0-15.0); WHITE BLOOD COUNT (AUTO) 4.9 K/uL (4.8-10.8)
[2017-03-22 07:20] LABS: ANION GAP 8 (5-15); CHLORIDE 102 mmol/L (98-107); CREATININE 1.37 mg/dL (0.55-1.30); GLUCOSE 106 mg/dL (70-99); POTASSIUM 3.8 mmol/L (3.5-5.1); SODIUM SERUM 141 mmol/L (136-145); UREA NITROGEN, BLOOD 18 mg/dL (8-21)
[2017-03-22] MEDS: ALBUTEROL SULFATE 0.083% 2.5 MG/3 ML VIAL.NEB INH PRN ×2 (08:59→20:29)
[2017-03-22] MEDS: ASPIRIN 81 MG TAB.CHEW PO SCH (10:35)
[2017-03-22] MEDS: DOCUSATE SODIUM 100 MG CAPSULE PO SCH ×2 (10:35→21:43)
[2017-03-22] MEDS: LACTOBACILLUS RHAMNOSUS GG 1 CAP CAPSULE PO SCH ×2 (10:36→21:43)
[2017-03-22] MEDS: POTASSIUM CHLORIDE 20 MEQ TAB.PRT.SR PO SCH (10:37)
[2017-03-22] MEDS: ISOSORBIDE MONONITRATE 30 MG TAB.ER.24H PO SCH ×2 (10:37→21:43)
[2017-03-22] MEDS: FUROSEMIDE 20 MG TABLET PO SCH (10:38)
[2017-03-22] MEDS: CLOPIDOGREL BISULFATE 75 MG TABLET PO SCH (10:38)
[2017-03-22] MEDS: [UNRECOGNIZED DRUG - OTHER] PO SCH (10:38)
[2017-03-22] MEDS: OMEPRAZOLE 20 MG CAPSULE.DR (PriLOSEC) PO SCH ×2 (10:38→21:43)
[2017-03-22] MEDS: RANOLAZINE 500 MG TAB.SR.12H PO SCH ×2 (10:39→21:43)
[2017-03-22] MEDS: MULTIVITS,CA,MINERALS/IRON/FA 1 TABLET PO SCH (10:39)
[2017-03-22 12:44] VITALS: BP_SYST 132
[2017-03-22 16:38] VITALS: BP_SYST 150
[2017-03-22 19:30] VITALS: BP_SYST 152
[2017-03-22] MEDS: ATORVASTATIN 20 MG TABLET PO SCH (21:43)
[2017-03-22] MEDS: LISINOPRIL 20 MG TABLET PO SCH (21:44)
[2017-03-22] MEDS: MONTELUKAST 10 MG TABLET PO SCH (21:44)
[2017-03-22] MEDS: ENOXAPARIN SODIUM 40 MG/0.4 ML SYRINGE SUBCUT SCH (21:44)
[2017-03-22 23:24] VITALS: BP_SYST 151
[2017-03-22] MEDS: cefTRIAXone 1 GM in D5W 50 ML IV SCH (23:29)
[2017-03-23 03:01] VITALS: BP_SYST 141
[2017-03-23] MEDS: [UNRECOGNIZED DRUG - OTHER] PO SCH (09:00)
[2017-03-23] MEDS: OMEPRAZOLE 20 MG CAPSULE.DR (PriLOSEC) PO SCH ×2 (09:12→20:44)
[2017-03-23] MEDS: FUROSEMIDE 20 MG TABLET PO SCH (09:13)
[2017-03-23] MEDS: RANOLAZINE 500 MG TAB.SR.12H PO SCH ×2 (09:13→20:45)
[2017-03-23] MEDS: DOCUSATE SODIUM 100 MG CAPSULE PO SCH ×2 (09:14→20:45)
[2017-03-23] MEDS: ASPIRIN 81 MG TAB.CHEW PO SCH (09:14)
[2017-03-23] MEDS: ISOSORBIDE MONONITRATE 30 MG TAB.ER.24H PO SCH ×2 (09:14→20:45)
[2017-03-23] MEDS: MULTIVITS,CA,MINERALS/IRON/FA 1 TABLET PO SCH (09:14)
[2017-03-23] MEDS: LACTOBACILLUS RHAMNOSUS GG 1 CAP CAPSULE PO SCH ×2 (09:15→20:45)
[2017-03-23] MEDS: POTASSIUM CHLORIDE 20 MEQ TAB.PRT.SR PO SCH (10:53)
[2017-03-23] MEDS: CLOPIDOGREL BISULFATE 75 MG TABLET PO SCH (10:55)
[2017-03-23 13:12] VITALS: BP_SYST 126
[2017-03-23 13:26] VITALS: BP_SYST 140
[2017-03-23 16:13] VITALS: BP_SYST 132
[2017-03-23 20:00] VITALS: BP_SYST 164
[2017-03-23] MEDS: ATORVASTATIN 20 MG TABLET PO SCH (20:44)
[2017-03-23] MEDS: MONTELUKAST 10 MG TABLET PO SCH (20:44)
[2017-03-23] MEDS: LISINOPRIL 20 MG TABLET PO SCH (20:45)
[2017-03-23] MEDS: ENOXAPARIN SODIUM 40 MG/0.4 ML SYRINGE SUBCUT SCH (20:53)
[2017-03-23] MEDS: ZOLPIDEM TARTRATE 5 MG TABLET PO PRN (22:38)
[2017-03-23] MEDS: cefTRIAXone 1 GM in D5W 50 ML IV SCH (23:21)
[2017-03-24] VITALS: BP_SYST 120
[2017-03-24 04:30] VITALS: BP_SYST 146
[2017-03-24 06:57] LABS: ANION GAP 6 (5-15); CALCIUM 8.4 mg/dL (8.4-11.0); CHLORIDE 105 mmol/L (98-107); CREATININE 1.29 mg/dL (0.55-1.30); GLUCOSE 116 mg/dL (70-99); POTASSIUM 3.9 mmol/L (3.5-5.1); SODIUM SERUM 138 mmol/L (136-145); UREA NITROGEN, BLOOD 19 mg/dL (8-21)
[2017-03-24] MEDS: ALBUTEROL SULFATE 0.083% 2.5 MG/3 ML VIAL.NEB INH PRN (07:11)
[2017-03-24 08:21] VITALS: BP_SYST 134
[2017-03-24] MEDS: [UNRECOGNIZED DRUG - OTHER] PO SCH (09:00)
[2017-03-24] MEDS: ASPIRIN 81 MG TAB.CHEW PO SCH (09:13)
[2017-03-24] MEDS: ISOSORBIDE MONONITRATE 30 MG TAB.ER.24H PO SCH (09:13)
[2017-03-24] MEDS: MULTIVITS,CA,MINERALS/IRON/FA 1 TABLET PO SCH (09:13)
[2017-03-24] MEDS: RANOLAZINE 500 MG TAB.SR.12H PO SCH (09:14)
[2017-03-24] MEDS: CLOPIDOGREL BISULFATE 75 MG TABLET PO SCH (09:14)
[2017-03-24] MEDS: FUROSEMIDE 20 MG TABLET PO SCH (09:14)
[2017-03-24] MEDS: POTASSIUM CHLORIDE 20 MEQ TAB.PRT.SR PO SCH (09:14)
[2017-03-24] MEDS: DOCUSATE SODIUM 100 MG CAPSULE PO SCH (09:14)
[2017-03-24] MEDS: OMEPRAZOLE 20 MG CAPSULE.DR (PriLOSEC) PO SCH (09:14)
[2017-03-24] MEDS: LACTOBACILLUS RHAMNOSUS GG 1 CAP CAPSULE PO SCH (09:14)
[2017-03-24 11:57] VITALS: BP_SYST 116
[2017-03-24 12:00] VITALS: BP_SYST 116
[2017-03-24] MEDS ORDERED: APIX5TAB PO (12:33)
[2017-03-24 13:35] VITALS: BP_SYST 116
== END 2017-03-24 15:00 | disposition home or self-care (01) | DRG 690 ==
LOC: SED 20:48 → STU 21:44
PROVIDERS: ADMIT Internal Medicine; ATTEND Internal Medicine
DX: N39.0 Urinary tract infection, site not specified (principal); E11.21 Type 2 diabetes mellitus with diabetic nephropathy; I27.2 Other secondary pulmonary hypertension; W19.XXXA Unspecified fall, initial encounter; E11.22 Type 2 diabetes mellitus with diabetic chronic kidney disease; M17.0 Bilateral primary osteoarthritis of knee; J44.9 Chronic obstructive pulmonary disease, unspecified; E78.5 Hyperlipidemia, unspecified; D63.8 Anemia in other chronic diseases classified elsewhere; K44.9 Diaphragmatic hernia without obstruction or gangrene; K57.90 Diverticulosis of intestine, part unspecified, without perforation or abscess without bleeding; I48.91 Unspecified atrial fibrillation; I25.10 Atherosclerotic heart disease of native coronary artery without angina pectoris; I12.9 Hypertensive chronic kidney disease with stage 1 through stage 4 chronic kidney disease, or unspecified chronic kidney disease; N18.9 Chronic kidney disease, unspecified; Z88.5 Allergy status to narcotic agent; Z95.5 Presence of coronary angioplasty implant and graft; Z79.02 Long term (current) use of antithrombotics/antiplatelets; Z79.82 Long term (current) use of aspirin; Z86.73 Personal history of transient ischemic attack (TIA), and cerebral infarction without residual deficits; Z87.440 Personal history of urinary (tract) infections; Z79.899 Other long term (current) drug therapy; Z90.49 Acquired absence of other specified parts of digestive tract; Z90.710 Acquired absence of both cervix and uterus; Z98.49 Cataract extraction status, unspecified eye; Z82.49 Family history of ischemic heart disease and other diseases of the circulatory system; Y93.89 Activity, other specified; Y99.8 Other external cause status; Y92.091 Bathroom in other non-institutional residence as the place of occurrence of the external cause
CPT/HCPCS: 36415; 70450-TC; 71010; 78579; 78580-TC; 80048; 80053; 80307; 81000-TC; 82550-TC; 82962; 84484; 85025; 85610-TC; 85730-TC; 87086; 93005; 93306; 93970; 94640; 94760; 96360; 99285; A9539; A9540; G0480; G0481; G0482; J0696; J1650; J1815; J1956; J7030; J7050; J7060; Q2037

== ENCOUNTER 2017-04-02 12:00 | Inpatient (IN) | payer OTHER ==
[~2017-04-02] VITALS: Ht 167.6 cm; Wt 89.8 kg
[~2017-04-02 12:00] MED LIST changes: +APIX5TAB PO; -ASPI81TA2 PO; +DOCU-144 PO; -FLA250 PO; +FURO-150 PO; +POTA20TA83 PO; +VITRON C PO
[2017-04-02 22:40] VITALS: BP_SYST 144
[2017-04-02] MEDS ORDERED: HYDROmorphone 1 MG INJ. 1 MG/ML AMPUL IVP PRN (23:15)
[2017-04-02] MEDS ORDERED: ZOLPIDEM TARTRATE 5 MG TABLET PO ONE (23:15)
[2017-04-02] MEDS ORDERED: ACETAMINOPHEN 325 MG TABLET PO PRN (23:15)
[2017-04-02] MEDS ORDERED: ONDANSETRON HCL 4 MG/2 ML VIAL IVP PRN (23:15)
[2017-04-02] MEDS ORDERED: cloNIDine HCL 0.1 MG TABLET PO PRN (23:15)
[2017-04-02] MEDS ORDERED: PANTOPRAZOLE SODIUM 40 MG/VIAL (PROTONIX) IVP ONE (23:45)
[2017-04-02 23:51] VITALS: BP_SYST 144
[2017-04-03] VITALS (7 sets, daily range): BP systolic 133–148
[2017-04-03] MEDS: LACTOBACILLUS RHAMNOSUS GG 1 CAP CAPSULE PO SCH ×3 (06:06→20:41)
[2017-04-03 07:15] LABS: BASOPHILS % (AUTO) 0.2 % (0.0-2.0); EOSINOPHILS # (AUTO) 0.1 K/uL (0.0-0.4); EOSINOPHILS % (AUTO) 1.5 % (0.0-4.0); HEMATOCRIT 37.1 % (36-48); HEMOGLOBIN 12.3 g/dL (12.0-16.0); LYMPHOCYTES # (AUTO) 1.1 K/uL (1.0-5.5); MEAN CORPUSCULAR HEMOGLOBIN 28 pg (27-31); MEAN CORPUSCULAR HGB CONC 33 % (32-36); MEAN CORPUSCULAR VOLUME 84 fL (79.0-98.0); MONOCYTES # (AUTO) 0.5 K/uL (0.0-1.0); MONOCYTES % (AUTO) 7.7 % (1.7-9.3); NEUTROPHILS # (AUTO) 4.7 K/uL (1.8-7.7); NEUTROPHILS % (AUTO) 73.6 % (40.0-70.0); PLATELET COUNT (AUTO) 196 K/uL (130-430); RED BLOOD CELL COUNT(AUTO) 4.43 MIL/uL (4.2-6.2); RED CELL DISTRIBUTION WIDTH 15.5 % (9.0-15.0); WHITE BLOOD COUNT (AUTO) 6.4 K/uL (4.8-10.8)
[2017-04-03 07:18] LABS: ALANINE AMINOTRANSFERASE 108 U/L (12-78); ANION GAP 6 (5-15); ASPARTATE AMINOTRANSFERASE 63 U/L (10-37); CALCIUM 9.7 mg/dL (8.4-11.0); CHLORIDE 102 mmol/L (98-107); CREATININE 1.28 mg/dL (0.55-1.30); GLUCOSE 111 mg/dL (70-99); LIPASE 163 U/L (73-393); SODIUM SERUM 138 mmol/L (136-145); TOTAL BILIRUBIN 0.7 mg/dL (0.0-1.0); UREA NITROGEN, BLOOD 23 mg/dL (8-21)
[2017-04-03] MEDS ORDERED: VITRON C PO SCH (09:00)
[2017-04-03] MEDS: POTASSIUM CHLORIDE 20 MEQ TAB.PRT.SR PO SCH (09:53)
[2017-04-03] MEDS: CLOPIDOGREL BISULFATE 75 MG TABLET PO SCH (09:53)
[2017-04-03] MEDS: OMEPRAZOLE 20 MG CAPSULE.DR (PriLOSEC) PO SCH ×2 (09:53→20:41)
[2017-04-03] MEDS: PANTOPRAZOLE SODIUM 40 MG/VIAL (PROTONIX) IVP SCH ×2 (09:53→20:40)
[2017-04-03] MEDS: CYANOCOBALAMIN 1000 mCg TABLET PO SCH (09:53)
[2017-04-03] MEDS: APIXABAN 2.5 MG TABLET PO SCH ×2 (09:53→20:41)
[2017-04-03] MEDS: LEVOFLOXACIN 250 MG TABLET PO SCH (09:53)
[2017-04-03] MEDS: FUROSEMIDE 20 MG TABLET PO SCH (09:54)
[2017-04-03] MEDS: DOCUSATE SODIUM 100 MG CAPSULE PO SCH ×2 (09:54→20:41)
[2017-04-03] MEDS: ISOSORBIDE MONONITRATE 30 MG TAB.ER.24H PO SCH ×2 (09:54→20:43)
[2017-04-03] MEDS: RANOLAZINE 500 MG TAB.SR.12H PO SCH ×2 (10:02→20:42)
[2017-04-03] MEDS: ALBUTEROL SULFATE 0.083% 2.5 MG/3 ML VIAL.NEB INH PRN ×2 (10:18→19:26)
[2017-04-03] MEDS: ZOLPIDEM TARTRATE 5 MG TABLET PO SCH (20:41)
[2017-04-03] MEDS: LISINOPRIL 20 MG TABLET PO SCH (20:42)
[2017-04-03] MEDS: MONTELUKAST 10 MG TABLET PO SCH (20:42)
[2017-04-03] MEDS: ATORVASTATIN 20 MG TABLET PO SCH (20:43)
[2017-04-04 04:05] VITALS: BP_SYST 135
[2017-04-04] MEDS: LACTOBACILLUS RHAMNOSUS GG 1 CAP CAPSULE PO SCH ×3 (06:07→20:57)
[2017-04-04] MEDS: ALBUTEROL SULFATE 0.083% 2.5 MG/3 ML VIAL.NEB INH PRN (07:22)
[2017-04-04 07:32] LABS: BASOPHILS % (AUTO) 0.2 % (0.0-2.0); EOSINOPHILS # (AUTO) 0.1 K/uL (0.0-0.4); EOSINOPHILS % (AUTO) 1.4 % (0.0-4.0); HEMATOCRIT 38.6 % (36-48); HEMOGLOBIN 12.6 g/dL (12.0-16.0); LYMPHOCYTES # (AUTO) 1.2 K/uL (1.0-5.5); LYMPHOCYTES % (AUTO) 26.2 % (20.5-51.5); MEAN CORPUSCULAR HEMOGLOBIN 28 pg (27-31); MEAN CORPUSCULAR HGB CONC 33 % (32-36); MEAN CORPUSCULAR VOLUME 85 fL (79.0-98.0); MONOCYTES # (AUTO) 0.6 K/uL (0.0-1.0); NEUTROPHILS # (AUTO) 2.8 K/uL (1.8-7.7); NEUTROPHILS % (AUTO) 59.2 % (40.0-70.0); PLATELET COUNT (AUTO) 187 K/uL (130-430); RED BLOOD CELL COUNT(AUTO) 4.55 MIL/uL (4.2-6.2); RED CELL DISTRIBUTION WIDTH 15.1 % (9.0-15.0); WHITE BLOOD COUNT (AUTO) 4.7 K/uL (4.8-10.8)
[2017-04-04 08:10] VITALS: BP_SYST 123
[2017-04-04 08:30] LABS: ANION GAP 6 (5-15); CALCIUM 9.4 mg/dL (8.4-11.0); CHLORIDE 103 mmol/L (98-107); GLUCOSE 104 mg/dL (70-99); POTASSIUM 3.9 mmol/L (3.5-5.1); SODIUM SERUM 138 mmol/L (136-145); UREA NITROGEN, BLOOD 17 mg/dL (8-21)
[2017-04-04 08:31] LABS: ALANINE AMINOTRANSFERASE 73 U/L (12-78); ALBUMIN 3.1 g/dL (3.4-4.8); ASPARTATE AMINOTRANSFERASE 30 U/L (10-37); CHOLESTEROL 108 mg/dL (<200); CREATININE 1.28 mg/dL (0.55-1.30); HDL CHOLESTEROL 61 mg/dL (>55); LDL CHOLESTEROL 50 mg/dL (<100); LIPASE 88 U/L (73-393); TOTAL BILIRUBIN 0.5 mg/dL (0.0-1.0); TRIGLYCERIDES 101 mg/dL (30-150)
[2017-04-04] MEDS: OMEPRAZOLE 20 MG CAPSULE.DR (PriLOSEC) PO SCH ×2 (09:18→20:58)
[2017-04-04] MEDS: RANOLAZINE 500 MG TAB.SR.12H PO SCH ×2 (09:18→20:58)
[2017-04-04] MEDS: CYANOCOBALAMIN 1000 mCg TABLET PO SCH (09:18)
[2017-04-04] MEDS: DOCUSATE SODIUM 100 MG CAPSULE PO SCH ×2 (09:18→20:58)
[2017-04-04] MEDS: APIXABAN 2.5 MG TABLET PO SCH ×2 (09:18→20:58)
[2017-04-04] MEDS: CLOPIDOGREL BISULFATE 75 MG TABLET PO SCH (09:19)
[2017-04-04] MEDS: LEVOFLOXACIN 250 MG TABLET PO SCH (09:19)
[2017-04-04] MEDS: FUROSEMIDE 20 MG TABLET PO SCH (09:19)
[2017-04-04] MEDS: POTASSIUM CHLORIDE 20 MEQ TAB.PRT.SR PO SCH (09:20)
[2017-04-04] MEDS: PANTOPRAZOLE SODIUM 40 MG/VIAL (PROTONIX) IVP SCH ×2 (09:20→20:57)
[2017-04-04] MEDS: ISOSORBIDE MONONITRATE 30 MG TAB.ER.24H PO SCH ×2 (09:20→20:57)
[2017-04-04 09:47] LABS: ACETAMINOPHEN < 1 ug/mL (1-30)
[2017-04-04 09:49] LABS: TOTAL IRON BIND. CAPACITY 310 ug/dL (250-450)
[2017-04-04 09:54] LABS: INR 1.2 (0.8-1.2); PROTHROMBIN TIME 13.4 SECS (9.5-12.5)
[2017-04-04 10:50] LABS: ERYTHROCYTE SEDIMENTATION RATE 8 MM/HR (0-20)
[2017-04-04 12:07] VITALS: BP_SYST 144
[2017-04-04 16:29] VITALS: BP_SYST 128
[2017-04-04] MEDS ORDERED: QUEtiapine FUMARATE 25 MG TABLET PO SCH (18:00)
[2017-04-04 20:00] VITALS: BP_SYST 136
[2017-04-04] MEDS: ATORVASTATIN 20 MG TABLET PO SCH (20:58)
[2017-04-04] MEDS: MONTELUKAST 10 MG TABLET PO SCH (20:58)
[2017-04-04] MEDS: ZOLPIDEM TARTRATE 5 MG TABLET PO SCH (20:58)
[2017-04-04] MEDS: LISINOPRIL 20 MG TABLET PO SCH (20:59)
[2017-04-04 23:31] VITALS: BP_SYST 110
[2017-04-05 03:50] VITALS: BP_SYST 125
[2017-04-05] MEDS: LACTOBACILLUS RHAMNOSUS GG 1 CAP CAPSULE PO SCH (06:22)
[2017-04-05] MEDS: ALBUTEROL SULFATE 0.083% 2.5 MG/3 ML VIAL.NEB INH PRN (07:42)
[2017-04-05 07:45] VITALS: BP_SYST 105
[2017-04-05 08:14] LABS: HEPATITIS A AB, IgM Negative (Negative); HEPATITIS B CORE AB, IgM Negative (Negative); HEPATITIS B SURFACE AG Negative (Negative)
[2017-04-05 09:31] LABS: AFP, TUMOR MARKER 5.5 ng/mL (0.0-8.3)
[2017-04-05] MEDS ORDERED: LORazepam 1 MG TABLET PO ONE (10:00)
[2017-04-05] MEDS: PANTOPRAZOLE SODIUM 40 MG/VIAL (PROTONIX) IVP SCH (10:03)
[2017-04-05] MEDS: OMEPRAZOLE 20 MG CAPSULE.DR (PriLOSEC) PO SCH (11:48)
[2017-04-05] MEDS: CLOPIDOGREL BISULFATE 75 MG TABLET PO SCH (11:48)
[2017-04-05] MEDS: CYANOCOBALAMIN 1000 mCg TABLET PO SCH (11:48)
[2017-04-05 11:49] VITALS: BP_SYST 142
[2017-04-05] MEDS: DOCUSATE SODIUM 100 MG CAPSULE PO SCH (11:49)
[2017-04-05] MEDS: LEVOFLOXACIN 250 MG TABLET PO SCH (11:49)
[2017-04-05] MEDS: FUROSEMIDE 20 MG TABLET PO SCH (11:49)
[2017-04-05] MEDS: POTASSIUM CHLORIDE 20 MEQ TAB.PRT.SR PO SCH (11:49)
[2017-04-05] MEDS: APIXABAN 2.5 MG TABLET PO SCH (11:49)
[2017-04-05] MEDS: ISOSORBIDE MONONITRATE 30 MG TAB.ER.24H PO SCH (11:50)
[2017-04-05] MEDS: RANOLAZINE 500 MG TAB.SR.12H PO SCH (11:55)
[2017-04-05 12:26] LABS: FERRITIN 34 ng/mL (15-150)
[2017-04-05] MEDS ORDERED: NEOMY SULF/BACITRAC ZN/POLY 14.2 GM OINT..GM. TP PRN (14:00)
[2017-04-05 15:06] VITALS: BP_SYST 146
[2017-04-05 15:25] VITALS: BP_SYST 110
[2017-04-05 18:20] LABS: ANTI NUCLEAR AB WITH REFLEX Negative (Negative)
[2017-04-06 03:10] LABS: ALPHA-1-ANTITRYPSIN, S 151 mg/dL (90-200); CERULOPLASMIN 27.2 mg/dL (19.0-39.0)
[2017-04-07 09:13] LABS: ANTI-SMOOTH MUSCLE AB 7 Units (0-19)
[2017-04-09 11:16] LABS: LIVER-KIDNEY MICROSOMAL AB 1.9 Units (0.0-20.0)
== END 2017-04-05 16:13 | disposition home or self-care (01) | DRG 439 ==
LOC: SMU 22:20 → STU 22:41
PROVIDERS: ADMIT Internal Medicine; ATTEND Internal Medicine
DX: K85.90 Acute pancreatitis without necrosis or infection, unspecified (principal); D68.59 Other primary thrombophilia; E11.22 Type 2 diabetes mellitus with diabetic chronic kidney disease; I27.2 Other secondary pulmonary hypertension; I48.91 Unspecified atrial fibrillation; D63.8 Anemia in other chronic diseases classified elsewhere; I12.9 Hypertensive chronic kidney disease with stage 1 through stage 4 chronic kidney disease, or unspecified chronic kidney disease; E78.5 Hyperlipidemia, unspecified; I25.10 Atherosclerotic heart disease of native coronary artery without angina pectoris; M17.0 Bilateral primary osteoarthritis of knee; K57.90 Diverticulosis of intestine, part unspecified, without perforation or abscess without bleeding; J44.9 Chronic obstructive pulmonary disease, unspecified; K44.9 Diaphragmatic hernia without obstruction or gangrene; N18.9 Chronic kidney disease, unspecified; Z95.5 Presence of coronary angioplasty implant and graft; Z88.5 Allergy status to narcotic agent; Z79.2 Long term (current) use of antibiotics; Z79.01 Long term (current) use of anticoagulants; Z79.899 Other long term (current) drug therapy; Z87.440 Personal history of urinary (tract) infections
CPT/HCPCS: 36415; 74181; 76700-TC; 80053; 80061; 80074; 82103; 82105; 82390; 82728; 83036; 83516; 83540-TC; 83550-TC; 83690-TC; 85025; 85610-TC; 85651-TC; 86038; 86301; 86376; 87045-TC; 87081; 87230-TC; 89055; 93005; 94640; 94760; C9113; G0480; G0481

== ENCOUNTER → 2017-07-12 | Outpatient (CLI) | payer OTHER ==
[~2017-07-12] MED LIST changes: +ALBMDI INH; +AMIO100T4 PO; +CEPH-568 PO; +FERR-57 PO; -LEVO250T20 PO; +METO-290 PO; +NITR0.4T6 SL; +TAM45SUS PO
[2017-07-12 14:19] LABS: ALANINE AMINOTRANSFERASE 23 U/L (12-78); ALBUMIN 3.6 g/dL (3.4-4.8); ANION GAP 7 (5-15); ASPARTATE AMINOTRANSFERASE 18 U/L (10-37); CALCIUM 9.5 mg/dL (8.4-11.0); CHLORIDE 100 mmol/L (98-107); CREATININE 1.53 mg/dL (0.55-1.30); FREE T4 (FREE THYROXINE) 0.9 ng/dL (0.6-1.6); GLUCOSE 110 mg/dL (70-99); POTASSIUM 4.1 mmol/L (3.5-5.1); SODIUM SERUM 137 mmol/L (136-145); THYROID STIMULATING HORMONE 2.07 uIu/mL (0.34-4.82); TOTAL BILIRUBIN 0.4 mg/dL (0.0-1.0); UREA NITROGEN, BLOOD 22 mg/dL (8-21)
== END | disposition home or self-care (01) ==
LOC: SCA 13:00
PROVIDERS: ATTEND Internal Medicine
DX: I51.7 Cardiomegaly (principal); I48.91 Unspecified atrial fibrillation; I70.0 Atherosclerosis of aorta; R90.82 White matter disease, unspecified; R51 Headache; I10 Essential (primary) hypertension; E78.00 Pure hypercholesterolemia, unspecified
CPT/HCPCS: 36415; 70450-TC; 71046-TC; 80053; 83735-TC; 84439; 84443-TC; 84481; 93005